=== PATIENT | female | born 1950 ===

== ENCOUNTER → 2018-06-18 | Emergency (ER) | payer OTHER ==
[~2018-06-18] VITALS: Ht 154.9 cm; Wt 63.5 kg
[~2018-06-18] MED LIST: ALTACE10 MG; CALAN80 MG; CORRECTOL5 MG; FENOFIBRATE150 MG; LASIX20 MG; MACRODANTIN100 M1; PROTONIX40 M1; PYRIDIUM100 M1
== END | disposition home or self-care (01) ==
LOC: ER 09:44
DX: R10.13 Epigastric pain (principal)

== ENCOUNTER 2022-07-18 05:00 | Day surgery (SDC) | payer OTHER ==
[~2022-07-18] VITALS: Ht 154.9 cm; Wt 63.5 kg
[~2022-07-18 05:00] MED LIST changes: +CITALOPRAM PO; +HYDRALAZINE HCL25 MG PO; +PEPCID AC20 MG PO; +PEPCID20 MG PO; +VITAMIN D31 ML PO; +ZETIA10 MG PO
== END 2022-07-18 10:35 | disposition home or self-care (01) ==
LOC: CIR.AMB 05:00
PROVIDERS: ATTEND Specialist
DX: K43.2 Incisional hernia without obstruction or gangrene (principal); Z20.822 Contact with and (suspected) exposure to COVID-19; I10 Essential (primary) hypertension